=== PATIENT | female | born 1990 | race Caucasian/White ===

== ENCOUNTER 2024-11-25 02:55 | Emergency (ER) | payer MEDICAID ==
[~2024-11-25] VITALS: Ht 162.6 cm; Wt 68.7 kg
[2024-11-25 03:08] VITALS: O2SAT 100
[2024-11-25 07:35] LABS: BASOPHILS % 0.8 % (0.0-2.0); EOSINOPHILS % 1.6 % (0.0-5.0); HEMATOCRIT. 27.9 % (36.0-48.0); HEMOGLOBIN. 8.7 g/dL (12.0-16.0); MEAN CORPUSCULAR HGB CONC 31.2 g/dL (31.0-37.0); MEAN CORPUSCULAR VOLUME 67.4 fL (81.0-99.0); MEAN PLATELET VOLUME 7.8 fl (7.4-10.4); MONOCYTES % 9.6 % (2.0-8.0); PLATELET 408 x1000/uL (130-400); RED BLOOD CELL COUNT 4.13 mill/uL (4.2-5.4); RED CELL DISTRIBUTION WIDTH 18.5 % (11.6-14.6); WHITE BLOOD COUNT 6.3 x1000/uL (4.5-11.0)
[2024-11-25 07:42] LABS: DIFFERENTIAL COMMENT 1
[2024-11-25 07:43] LABS: ADD RBC MORPHOLOGY YES
[2024-11-25 07:52] LABS: CHLORIDE 107 mEq/L (98-107); SODIUM 139 mEq/L (136-145)
[2024-11-25 07:53] LABS: CALCIUM 8.8 mg/dL (8.7-10.4); CARBON DIOXIDE 24 mEq/L (21-32)
[2024-11-25 07:56] LABS: HCG SCREEN NEGATIVE
[2024-11-25 07:58] LABS: CREATININE 0.6 mg/dL (0.6-1.0); GLUCOSE 97 mg/dL (70-105); UREA NITROGEN BLOOD 9 mg/dL (9-23)
[2024-11-25 08:00] LABS: ALANINE AMINOTRANSFERASE 14 IU/L (10-49); ALBUMIN 4.1 g/dL (3.2-4.8); ASPARTATE AMINOTRANSFERASE 16 IU/L (<34); BILIRUBIN DIRECT < 0.1 mg/dL (<=3.0); BILIRUBIN TOTAL 0.3 mg/dL (0.1-1.0); PROTEIN TOTAL 7.1 g/dL (6.0-8.3)
[2024-11-25] MEDS: ONDANSETRON 4MG ODT PO ONE (08:01)
[2024-11-25] MEDS: MAGNESIUM/ALUMINUM HYDROXIDE/SIMETHICONE 30ML UDC PO ONE (08:01)
[2024-11-25] MEDS: FAMOTIDINE 20MG TABLET PO ONE (08:02)
[2024-11-25 09:14] LABS: CLARITY URINE CLEAR (CLEAR); COLOR URINE YELLOW (YELLOW); GLUCOSE URINE NEGATIVE (NEGATIVE); KETONES URINE NEGATIVE (NEGATIVE); OCCULT BLOOD URINE NEGATIVE (NEGATIVE); PH URINE 6.5 (4.5-8.0); PROTEIN URINE NEGATIVE (NEGATIVE); SPECIFIC GRAVITY URINE 1.014 (1.005-1.030)
[2024-11-25 09:15] LABS: LEUKOCYTE ESTERASE URINE NEGATIVE (NEGATIVE); NITRITE URINE NEGATIVE (NEGATIVE); UROBILINOGEN URINE 0.2 E.U./dL (0.2-1.0)
[2024-11-25] MEDS ORDERED: FERR325T6 MT (09:30)
[2024-11-25] MEDS ORDERED: DOCU-138 MT (09:30)
[2024-11-25] MEDS ORDERED: FERR325T23 MT (09:30)
[2024-11-25 10:02] VITALS: BP 136/80; PULSE 74; RESP 14; TEMP 37; O2SAT 100
[2024-11-25 13:50] LABS: ANISOCYTOSIS 2+; MICROCYTOSIS 3+; PLATELET ESTIMATE SLIGHTLY INCREASED
== END 2024-11-25 10:10 | disposition home or self-care (01) ==
LOC: ER 02:55
DX: D64.9 Anemia, unspecified (principal); Z79.899 Other long term (current) drug therapy
CPT/HCPCS: 99284; 80076; 80048; 81003; 81025; 84703; 83690; 85025; 36415; Q0162

== ENCOUNTER 2024-12-25 19:05 | Emergency (ER) | payer MEDICAID, OTHER ==
[~2024-12-25] VITALS: Ht 162.6 cm; Wt 68.0 kg
[~2024-12-25 19:05] MED LIST: DOCU-138 MT; FERR325T6 MT
[2024-12-25 19:33] VITALS: O2SAT 100
[2024-12-25 20:48] VITALS: BP 123/83; PULSE 72; RESP 18; TEMP 36.8; O2SAT 99
== END 2024-12-25 20:49 | disposition home or self-care (01) ==
LOC: ER 19:05
DX: S27.818A Other injury of esophagus (thoracic part), initial encounter (principal); W44.F3XA Food entering into or through a natural orifice, initial encounter; Y93.89 Activity, other specified; Y92.89 Other specified places as the place of occurrence of the external cause; Y99.8 Other external cause status
CPT/HCPCS: 99281